=== PATIENT | male | born 1985 | race Hispanic/Latino ===

== ENCOUNTER 2016-08-22 22:33 | Emergency (ER) | payer OTHER ==
[~2016-08-22 22:33] MED LIST: AFRIN NASAL60 SPRAY INH; AFRIN PUMPMIST15 ML NASB; AMOXIL 875 MG875 MG PO; ANUSOL HC-HEMOR1 SUP RC; IBU800 MG PO; MOBIC15 M1 PO; MOTRIN 800MG T800 MG PO; MOTRIN800 MG PO; PERCOCET 325 MG1 TA2 PO; POLYTRIM O200 GTT/BO OP; PREDNISONE 10MG10 M1 PO; PSEUDOEPHEDRINE30 MG PO; ROBITUSSIN W/CO10 ML PO; TESSALON PERLE100 MG PO; TRAMADOL50 MG PO; ZITHROMAX Z-PA250 M1 PO; ZOFRAN ODT4 MG PO
--- NOTE | 2016-08-22 22:57 | ED GI/GU/ABDOMINAL COMPLAINT ---
History of Present Illness General Chief Complaint: Abdominal Pain/Flank Pain Stated Complaint: ABD PAIN, BLOODY STOOL X 1 DAYS Source: patient Exam Limitations: no limitations Vital Signs & Intake/Output Vital Signs & Intake/Output Vital Signs Date Time Temp Pulse Resp B/P Pulse O2 O2 Flow FiO2 Ox Delivery Rate 08/23 0015 97.9 72 20 124/55 95 Room Air 08/22 2321 95 Room Air Room Air 08/22 2249 97.5 74 18 126/73 98 Room Air Allergies Coded Allergies: NO KNOWN ALLERGIES (10/18/15) No Known Drug Allergies (10/18/15) Triage Note: TRIAGE; PT TO ED C/O MID ABDOMINAL PAIN SINCE 4PM TODAY. PT HAS HX OF HERNIA'S BUT STATES THIS FEELS DIFFERENT. DENIES ANY URINARY S/S. STATES ALSO HAVING BLOOD IN STOOL, HAS HX OF HEMORRHOIDS, STATES THAT WHEN HE MOVES HIS BOWELS, HE CAN "HEAR THE BLOOD SQUIRT OUT." HAVING ABDOMINAL CRAMPING WELL. -N/V. ALSO STATES HE HAS FELT DIZZY FOR THE PAST FEW WEEKS. STATES THAT HE FEELS A "THROBBING" SENSATION TO HIS ABDOMEN. DENIES ANY CP/SOB, DENIES ANY CARDIAC HX. PT ALSO REPORTS HIS NAVEL USED TO GO INSIDE, NOW PROTRUDES OUT. Triage Nurses Notes Reviewed? yes Onset: Gradual Duration: worse persistent since (1 day) Timing: recent history Quality/Severity: fullness, sharpness Severity Numbers: 6 Location: periumbilical Radiation: no radiation Activities at Onset: none Prior Abdominal Problems: similar symptoms Past Sexual History: Unobtainable at this time No Modifying Factors: none HPI: Patient is a 31-year-old male presenting to the emergency department with chief complaint of periumbilical pain has been going on for the past several months worse over the past couple days. He reports history of umbilical hernia, pain getting worse past couple days. Denies any nausea or vomiting. Still eating and drinking without difficulty. No fevers or chills. Palpation makes the pain worse nothing makes it better. Denies taking any medications to help symptoms. Last bowel movement was approximately 2 hours prior to arrival and normal. He also reports that he has rectal bleeding with bowel movements 2 years. He was told that he had hemorrhoids. He has not followed up with a surgeon regarding his umbilical hernia. (GAVIN CAUSEY) Reconcile Medications Tramadol HCl 50 MG TABLET 1 TAB PO Q6HR PRN PAIN (JORGE SMITH,RODRIGO Costa) Past History Travel History Traveled to [place] past 21 day No Medical History Any Pertinent Medical History? 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 No (GAVIN CAUSEY) Review of Systems Review of Systems Constitutional: Reports: no symptoms. Comments Review of systems: See HPI, All other systems negative. Constitutional, no chills fever or weight loss HEENT: No visual changes no sore throat no congestion Cardiovascular: No chest pain ,palpitation , orthopnea or ankle swelling Skin, no jaundice no rashes Respiratory: No dyspnea cough sputum or hemoptysis GI: No nausea no vomiting : No dysuria No hematuria Muscle skeletal: no back pain, no neck pain, Neurologic: No numbness no confusion Psych: No stress anxiety Immunology: No splenectomy or history of AIDS (GAVIN CAUSEY) Physical Exam Physical Exam General Appearance: well developed/nourished, no apparent distress, alert, awake , comfortable Gastrointestinal: normal bowel sounds, soft, tenderness Comments: Well-developed well-nourished person in no acute distress HEENT: Pupils equally round and reactive to light and accommodation. Nose is atraumatic. Neck: Normal inspection Back: Nontender, no CVA tenderness. Cardiovascular: Regular rate and rhythms no murmurs rubs or gallops, normal JVP Respiratory: Chest nontender. No respiratory distress.breath sounds clear to auscultation bilaterally Abdomen: Soft, tenderness to palpation of the. Umbilical region, umbilical hernia present that is reducible with moderate pain ,nondistended, no appreciable organomegaly. Normal bowel sounds. No ascites rectal: No palpable hemorrhoids, trace positive guaiac. Extremity: No edema Neuro: Alert oriented x3 Skin: No appreciable rash on exposed skin, skin is warm and dry. Psych: Mood and affect is normal, memory and judgment is normal. Core Measures ACS in differential dx? No Severe Sepsis Present: No Septic Shock Present: No (RICA GOMEZGAVIN) Progress Differential Diagnosis: UTI/pyelo, incarcerated umbilical hernia, strangulate Yelena hernia, gastritis, GERD hemorrhoid, internal hemorrhoid, lower GI bleed Plan of Care: Orders Procedure Date/time Status PARTIAL THROMBOPLASTIN TIME 08/22 2302 Complete PROTHROMBIN TIME 08/22 2302 Complete COMPREHENSIVE METABOLIC PANEL 08/22 2302 Complete CBC WITHOUT DIFFERENTIAL 08/22 2302 Complete Laboratory Tests 08/22/16 2317: Anion Gap 14, Estimated GFR > 60, BUN/Creatinine Ratio 17.8, Glucose 80, Calcium 9.3, Total Bilirubin 0.4, AST 29, ALT 52, Alkaline Phosphatase 50, Total Protein 8.0, Albumin 4.7, Globulin 3.3, Albumin/Globulin Ratio 1.4, PT 11.6, INR 1.11, APTT 29, CBC w Diff NO MAN DIFF REQ, RBC 4.92, MCV 82.1, MCH 27.5, RDW 13.6, MPV 7.3 L, Gran % 60.6, Lymphocytes % 29.2, Monocytes % 9.1, Eosinophils % 0.7, Basophils % 0.4, Absolute Granulocytes 4.6, Absolute Lymphocytes 2.2, Absolute Monocytes 0.7 H, Absolute Eosinophils 0.1, Absolute Basophils 0, PUBS MCHC 33.5 Diagnostic Imaging: Viewed by Me: CT Scan. Discussed w/RAD: CT Scan. Radiology Impression: PATIENT: SABAS FRANK PRESENT AGE: 31 PATIENT ACCOUNT NO: [id number] : 83 LOCATION: [facility] ORDERING PHYSICIAN: GAVIN GOMEZ SERVICE DATE: 08/22/16 EXAM TYPE: CAT - CT ABD & PELVIS W IV CONTRAST EXAMINATION: CT ABDOMEN AND PELVIS WITH CONTRAST CLINICAL INFORMATION: Incarcerated hernia. Abdominal pain around the umbilicus region COMPARISON: CT scan abdomen pelvis 11/14/2015 TECHNIQUE: Multidetector volumetric imaging was performed of the abdomen and pelvis after the IV administration of 93 mL of Optiray 320 intravenous contrast. Sagittal and coronal reformatted images were obtained on the technologist's workstation. DLP: 362.19 mGy-cm. FINDINGS: LUNG BASES: The visualized lung bases are unremarkable. LIVER, GALLBLADDER, AND BILIARY TREE: The liver is normal in size, shape, and attenuation. No focal hepatic lesion or biliary ductal dilatation is present. The gallbladder is contracted. No bile duct dilatation. PANCREAS: Unremarkable. SPLEEN: Unremarkable. ADRENAL GLANDS: Unremarkable. KIDNEYS AND URETERS: The kidneys are normal in size, shape, and attenuation. No hydronephrosis, hydroureter, or calculi seen. No perinephric stranding. BLADDER: Unremarkable. GASTROINTESTINAL TRACT: The small and large bowel are unremarkable. The appendix is unremarkable. ABDOMINAL WALL: Fat-containing periumbilical hernia. Herniated fat pocket measures approximately 3 x 1.8 x 1.8 cm. There is stranding densities extending from the anterior mesentery into the herniated fat pocket. This has not changed in appearance though since the CAT scan of 11/14/2015. No fluid collections or inflammation. No bowel involved in the herniation. LYMPH NODES: Normal. VASCULAR: Unremarkable. PELVIC VISCERA: Unremarkable. OSSEOUS STRUCTURES : Unremarkable. IMPRESSION: Fat-containing periumbilical hernia. Does not involve bowel loops. No change in appearance since CAT scan of 11/14/2015. Initial ED EKG: none Comments: Patient medicated with IV Toradol and arrival. Hernia is reducible on exam the patient is in a lot of pain with doing so. Patient will go for CT rule out any incarcerated hernia. (GAVIN CAUSEY) Departure Departure Time of Disposition: 0003 Disposition: HOME OR SELF CARE Condition: Stable Clinical Impression Primary Impression: Umbilical hernia Qualifiers: Obstruction and gangrene presence: without obstruction or gangrene Qualified Code: K42.9 - Umbilical hernia without obstruction or gangrene Referrals: PATIENT HAS NO PRIMARY CARE DR (PCP/Family) Additional Instructions: Follow-up with Dr. Holland, a general surgeon, call to make an appointment. Take tramadol as prescribed for any pain. Increase fluids. Return for worsening symptoms or concerns. Departure Forms: Customer Survey General Discharge Information Prescriptions: Current Visit Scripts Tramadol HCl 1 TAB PO Q6HR PRN PAIN #10 TAB (GAVIN CAUSEY) PA/GUNNER'S MATE M Co-Sign Statement Statement: ED Attending supervision documentation- [] I saw and evaluated the patient. I have also reviewed all the pertinent lab results and diagnostic results. I agree with the findings and the plan of care as documented in the PA's/GUNNER'S MATE M's documentation. [X] I have reviewed the ED Record and agree with the PA's/GUNNER'S MATE M's documentation. [] Additions or exceptions (if any) to the PAs/GUNNER'S MATE M's note and plan are summarized below: [] (JORGE SMITH,RODRIGO Costa)
[2016-08-22 23:25] LABS: ABSOLUTE BASOPHIL COUNT 0 /CUMM (0.0-0.2); ABSOLUTE EOSINOPHIL COUNT 0.1 /CUMM (0.0-0.7); ABSOLUTE GRANULOCYTE CT 4.6 /CUMM (1.4-6.5); ABSOLUTE LYMPH COUNT 2.2 /CUMM (1.2-3.4); ABSOLUTE MONOCYTE COUNT 0.7 /CUMM (0.10-0.60); BASOPHIL % 0.4 % (0.0-2.0); EOSINOPHIL % 0.7 % (0-5); GRANULOCYTE % 60.6 % (42.2-75.2); HEMATOCRIT 40.4 % (42-52); MEAN CORPUSCULAR HGB 27.5 PG (27.0-31.0); MEAN CORPUSCULAR HGB CONC 33.5 G/DL (33.0-37.0); MEAN CORPUSCULAR VOLUME 82.1 FL (80.0-94.0); MEAN PLATELET VOLUME 7.3 FL (7.4-10.4); PLATELET COUNT 272 /CUMM (130-400); RBC DISTRIBUTION WIDTH 13.6 % (11.5-14.5); RED BLOOD CELL CT 4.92 /CUMM (4.70-6.10); WHITE BLOOD CELL COUNT 7.6 /CUMM (4.8-10.8)
[2016-08-22 23:33] LABS: PT 11.6 SEC (9.4-12.5); PTT 29 SEC (25-37)
--- NOTE | 2016-08-23 00:01 | CT SCAN REPORT ---
EXAMINATION: CT ABDOMEN AND PELVIS WITH CONTRAST CLINICAL INFORMATION: Incarcerated hernia. Abdominal pain around the umbilicus region COMPARISON: CT scan abdomen pelvis 11/14/2015 TECHNIQUE: Multidetector volumetric imaging was performed of the abdomen and pelvis after the IV administration of 93 mL of Optiray 320 intravenous contrast. Sagittal and coronal reformatted images were obtained on the technologist's workstation. DLP: 362.19 mGy-cm. FINDINGS: LUNG BASES: The visualized lung bases are unremarkable. LIVER, GALLBLADDER, AND BILIARY TREE: The liver is normal in size, shape, and attenuation. No focal hepatic lesion or biliary ductal dilatation is present. The gallbladder is contracted. No bile duct dilatation. PANCREAS: Unremarkable. SPLEEN: Unremarkable. ADRENAL GLANDS: Unremarkable. KIDNEYS AND URETERS: The kidneys are normal in size, shape, and attenuation. No hydronephrosis, hydroureter, or calculi seen. No perinephric stranding. BLADDER: Unremarkable. GASTROINTESTINAL TRACT: The small and large bowel are unremarkable. The appendix is unremarkable. ABDOMINAL WALL: Fat-containing periumbilical hernia. Herniated fat pocket measures approximately 3 x 1.8 x 1.8 cm. There is stranding densities extending from the anterior mesentery into the herniated fat pocket. This has not changed in appearance though since the CAT scan of 11/14/2015. No fluid collections or inflammation. No bowel involved in the herniation. LYMPH NODES: Normal. VASCULAR: Unremarkable. PELVIC VISCERA: Unremarkable. OSSEOUS STRUCTURES: Unremarkable. IMPRESSION: Fat-containing periumbilical hernia. Does not involve bowel loops. No change in appearance since CAT scan of 11/14/2015.
[2016-08-23] MEDS ORDERED: TRAMADOL HCL50 M1 PO (00:04)
[2016-08-23 00:15] VITALS: BP 124/55
== END 2016-08-23 00:19 ==
LOC: ERH 22:33
PROVIDERS: Physician Assistant
DX: K42.9 Umbilical hernia without obstruction or gangrene (principal)
CPT/HCPCS: 74177; 96374; J1885

== ENCOUNTER → 2016-10-02 | Day surgery (SDC) | payer OTHER ==
[~2016-10-02] VITALS: Ht 170.2 cm; Wt 86.6 kg
[~2016-10-02] MED LIST changes: +TRAMADOL HCL50 M1 PO
--- NOTE | 2016-10-02 12:45 | Operative Report ---
Operative/Inv Procedure Report Surgery Date: 10/02/16 Name of Procedure: Laparoscopic left inguinal hernia repair. Open umbilical hernia repair with mesh Pre-Operative Diagnosis: Left inguinal hernia Incarcerated umbilical hernia Post-Operative Diagnosis: Same same Estimated Blood Loss: scant Surgeon/Production Leader: IGNACIA SMITH,CASSANDRA Ramirez/PATRICIA Anderson Anesthesia: general endotracheal tube Implants: Parietex inguinal hernia mesh Ventral X umbilical hernia mesh Operative/Procedure Note Note: After consent he is brought to the operating room and laid supine. Gen. anesthesia was obtained and his abdomen was prepped and draped. The skin below the umbilicus was after local anesthesia and a transverse incision made sharply. Subcutaneous tissues were dissected bluntly we identified the left-sided rectus fascia. It was incised transversely and stay sutures placed. The rectus muscles retracted laterally and a plane behind it developed with a peanut. The dissecting balloon was placed down to the level of pubis and inflated under direct vision the camera. It was deflated and replaced a blunt Bourgeois port. Gas was instilled. 2, 5 mm ports placed in the infraumbilical midline, after local anesthesia was instilled and under direct vision and camera. Began or dissection the pubis and delineated the symphysis. Gaurang's ligament was identified. It was a small direct hernia. We then came laterally and developed the iliopubic tract. There is indirect cord lipoma which was extracted from the internal ring. Cord structures then circumferentially dissected. A piece of Parietex keyhole mesh was then placed in the cavity. It was placed around the cord structures re-create the internal ring and cover the femoral direct spaces well. After his happy with the placement of mesh the gas was allowed to escape on maintaining proper orientation of. The fascia was enclosed 0 Vicryl suture. Then turned my attention to the umbilical hernia. The periumbilical incision was lengthened and the umbilical stalk circumferentially dissected. It was then transected with cautery and retractors placed. There was incarcerated fat which was circumvention dissected and then reduced. The base of the hernia defect was then delineated and the attenuated fascia excised. Resultant defect was 3 cm in greatest dimension. I chose a 6.4 ventral X mesh to cover the date defect. Preperitoneal planes were created circumferentially and the mesh placed into the cavity. Mesh was unraveled below the defect. We then closed the fascia over the mesh while incorporating the anterior portion of the mesh. This was done with interrupted 0 Maxon sutures. The umbilical stalk was then re-created with 3-0 Vicryl and incisions closed with 4-0 Vicryl. Steri-Strips and sterile dressing applied. Sponge and needle counts are correct.
== END ==
LOC: STS 01:39
DX: K40.90 Unilateral inguinal hernia, without obstruction or gangrene, not specified as recurrent (principal); K42.0 Umbilical hernia with obstruction, without gangrene
CPT/HCPCS: C1781; J0131; J0690; J2250